=== PATIENT | male | born 1995 | race Caucasian/White ===

== ENCOUNTER 2016-06-10 06:54 | Observation (INO) | payer OTHER ==
[~2016-06-10] VITALS: Ht 175.3 cm; Wt 84.0 kg
[2016-06-10 06:59] VITALS: Ht 175.3 cm; Wt 84.0 kg
[2016-06-10] MEDS ORDERED: SERT50TA PO (07:13)
[2016-06-10] MEDS ORDERED: ONDANSETRON INJ 2 MG/ML 2 ML VIAL IV STA ×2 (07:14→09:18)
[2016-06-10] MEDS ORDERED: SODIUM CHLORIDE 0.9% 1000ML 1,000 ML IV STA ×3 (07:14→13:27)
--- NOTE | 2016-06-10 07:20 | EMERGENCY ROOM VISIT NOTE ---
History Report prepared by Thierno: Matt Patel Under the Supervision of: Dr. Iram Kingsley M.D. First contact with patient: 07:03 Chief Complaint: VOMITING Stated Complaint: VOMITING,WATERY STOOL,CHILLS,FEVER Nursing Triage Summary: Pt reports nausea, vomitting diarrhea since approx 0200 today. pt reports "i think i had a fever and i had chills." History of Present Illness The patient is a 21 year old male who presents to the Emergency Room with complaints of persistent vomiting that started 4.5 hours prior to arrival. The patient notes he woke up in the middle of the night with vomiting. He notes he had recurring episodes every 15 minutes. The patient has not been able to keep any food or liquids down. The patient also complains of nausea, diarrhea, fever , and chills. He notes multiple close contact illnesses around his house. 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 A total of 10 systems reviewed and were otherwise negative. Past Medical & Surgical Medical Problems: (1) No pertinent past medical history Family History No pertinent family history Social History Smoking Status: Never Smoker Housing Status: lives with roommate Occupation Status: [employer] student Current/Historical Medications Scheduled Ondasetron Odt (Zofran Odt), 4 MG SL Q6H Sertraline (Zoloft), 50 MG PO DAILY Allergies Coded Allergies: No Known Allergies (Unverified , 06/10/16) Physical Exam Vital Signs Date Time Temp Pulse Resp B/P Pulse Ox O2 Delivery O2 Flow Rate FiO2 06/10/16 13:40 106 20 118/67 97 Room Air 06/10/16 11:44 119 18 107/64 98 Room Air 06/10/16 09:46 112 18 113/77 97 Room Air 06/10/16 08:05 102 18 117/75 100 Room Air 06/10/16 06:59 36.4 102 16 118/79 96 Room Air Physical Exam CONSTITUTIONAL: Mild distress HEENT: No icterus, moist mucous membranes NECK: No meningismus, trachea is midline. CARDIOVASCULAR: Regular rate, normal perfusion RESPIRATORY: Unlabored breathing. Clear to auscultation. GASTROINTESTINAL: Non-tender. Benign abdomen. GENITOURINARY: No flank tenderness MUSCULOSKELETAL: Full range of motion NEUROLOGIC: No acute gross focal deficits. PSYCHIATRIC: Normal affect SKIN: Normal for ethnicity. Medical Decision & Procedures ER Provider Diagnostic Interpretation: US results as stated below per my review and radiologist interpretation. Right upper quadrant ultrasound GALLBLADDER-ABD LIMITED CLINICAL HISTORY: pancreatitis pain. Nausea. TECHNIQUE: Real-time ultrasound COMPARISON STUDY: None FINDINGS: Small gallbladder polyp. No shadowing gallstones. Color wall and biliary duct system are normal. There is uniform throughout. Pancreas and right kidney are unremarkable. IMPRESSION: Small gallbladder polyp. Otherwise negative study Electronically signed by: Omer Stover M.D. 06/10/2016 12:47 PM Dictated Date/Time: 06/10/2016 12:42 PM Laboratory Results 06/10/16 07:11 Red Blood Count 5.38, Mean Corpuscular Volume 87.4, Mean Corpuscular Hemoglobin 30.1, Mean Corpuscular Hemoglobin Concent 34.5, Mean Platelet Volume 9.8, Neutrophils (%) (Auto) 81.4, Lymphocytes (%) (Auto) 12.8, Monocytes (%) (Auto) 4.6, Eosinophils (%) (Auto) 1.0, Basophils (%) (Auto) 0.1, Neutrophils # (Auto) 5.72, Lymphocytes # (Auto) 0.90, Monocytes # (Auto) 0.32, Eosinophils # (Auto) 0.07, Basophils # (Auto) 0.01 06/10/16 07:11 Test 06/10/16 07:11 06/10/16 07:21 White Blood Count 7.03 K/uL (4.8-10.8) Red Blood Count 5.38 M/uL (4.7-6.1) Hemoglobin 16.2 g/dL (14.0-18.0) Hematocrit 47.0 % (42-52) Mean Corpuscular Volume 87.4 fL (80-100) Mean Corpuscular Hemoglobin 30.1 pg (25-34) Mean Corpuscular Hemoglobin Concent 34.5 g/dl (32-36) Platelet Count 185 K/uL (130-400) Mean Platelet Volume 9.8 fL (7.4-10.4) Neutrophils (%) (Auto) 81.4 % Lymphocytes (%) (Auto) 12.8 % Monocytes (%) (Auto) 4.6 % Eosinophils (%) (Auto) 1.0 % Basophils (%) (Auto) 0.1 % Neutrophils # (Auto) 5.72 K/uL (1.4-6.5) Lymphocytes # (Auto) 0.90 K/uL (1.2-3.4) Monocytes # (Auto) 0.32 K/uL (0.11-0.59) Eosinophils # (Auto) 0.07 K/uL (0-0.5) Basophils # (Auto) 0.01 K/uL (0-0.2) RDW Standard Deviation 44.5 fL (36.4-46.3) RDW Coefficient of Variation 13.9 % (11.5-14.5) Immature Granulocyte % (Auto) 0.1 % Immature Granulocyte # (Auto) 0.01 K/uL (0.00-0.02) Anion Gap 11.0 mmol/L (3-11) Est Creatinine Clear Calc Drug Dose 109.7 ml/min Estimated GFR () 110.6 Estimated GFR (Non- 95.5 BUN/Creatinine Ratio 16.2 (10-20) Calcium Level 9.3 mg/dl (8.5-10.1) Total Bilirubin 0.4 mg/dl (0.2-1) Direct Bilirubin < 0.1 mg/dl (0-0.2) Aspartate Amino Transf (AST/SGOT) 31 U/L (15-37) Alanine Aminotransferase (ALT/SGPT) 52 U/L (12-78) Alkaline Phosphatase 98 U/L (45-117) Total Protein 8.8 gm/dl (6.4-8.2) Albumin 4.6 gm/dl (3.4-5.0) Lipase 1040 U/L (73-393) Labs reviewed by ED physician. Medications Administered Medications (Trade) Dose Ordered Sig/Justo Route Start Time Stop Time Status Last Admin Dose Admin Sodium Chloride (Nss 1000ml) 1,000 ml @ 0 mls/hr Q0M STAT IV 06/10/16 07:14 06/10/16 07:18 DC 06/10/16 07:24 999 MLS/HR Ondansetron HCl (Zofran Inj) 4 mg NOW STAT IV 06/10/16 07:14 06/10/16 07:18 DC 06/10/16 07:31 4 MG Ondansetron HCl 4 mg 4 mg NOW STAT IV 06/10/16 09:18 06/10/16 09:19 DC 06/10/16 09:27 4 MG Promethazine HCl 25 mg/Sodium Chloride 51 ml @ 204 mls/hr NOW STAT IV 06/10/16 10:05 06/10/16 10:19 DC 06/10/16 10:13 204 MLS/HR Sodium Chloride 1,000 ml @ 0 mls/hr Q0M STAT IV 06/10/16 10:07 06/10/16 10:09 DC 06/10/16 10:37 999 MLS/HR Sodium Chloride (Nss 1000ml) 1,000 ml @ 0 mls/hr Q0M STAT IV 06/10/16 13:27 06/10/16 13:28 DC 06/10/16 14:02 0 MLS/HR ED Course 0702: Past medical records reviewed. The patient was evaluated in room A3. A complete history and physical examination was performed. 0714: Ordered Zofran Inj 4 mg IV, NSS 1000 ml @ 0 mls/hr Wide Open IV. 0918: Ordered Zofran Inj 4 mg IV. 0957: At this time, I reevaluated the patient and he had another episode of vomiting after trying to drink some Gatorade. 1005: Ordered Promethazine HCl 25 mg/ NSS 51 ml @ 204 mls/hr IV. 1007: Ordered NSS 1000 ml @ 0 mls/hr Wide Open IV. 1156: At this time, I reevaluated the patient and he still was not feeling better. 1327: Ordered NSS 1000 ml @ 0 mls/hr Wide Open IV. 1333:At this time, I discussed the patient's case with Dr. René PORTILLO and he agreed to accept the patient for further evaluation. Medical Decision Differential diagnoses include gastroenteritis, pancreatitis, or gallstones. 21-year-old presents to the emergency department for evaluation of vomiting. Lipase was 1000 consistent with pancreatitis. Ultrasound negative for gallstones. Patient notes infrequent significant use of alcohol. Patient required repeated doses of antiemetics but remained nauseous throughout emergency Department course. Admission arranged. Consults Time Called: 1328 Consulting Physician: Dr. René PORTILLO Returned Call: [phone] At this time, I discussed the patient's case with Dr. Merritt and he agreed to accept the patient for further evaluation. Impression Primary Impression: Pancreatitis Additional Impression: Intractable vomiting Scribe Attestation The scribe's documentation has been prepared under my direction and personally reviewed by me in its entirety. I confirm that the note above accurately reflects all work, treatment, procedures, and medical decision making performed by me. Departure Information Dispostion Being Evaluated By Hospitalist Prescriptions Ondasetron Odt (ZOFRAN ODT) 4 Mg Tab 4 MG SL Q6H for Nausea, #20 TAB Prov: Iram Kingsley MD 06/10/16 Referrals No Doctor, Assigned (PCP) Problem Qualifiers
[2016-06-10] MEDS ORDERED: ONDA4TAB10 SL (07:21)
[2016-06-10 07:27] LABS: BASO % 0.1 %; BASO ABS # 0.01 K/uL (0-0.2); COMPLETE YES; IG% 0.1 %; LYMPH % 12.8 %; MEAN CELL VOLUME 87.4 fL (80-100); MEAN CORPUSCULAR HEMOGLOBIN 30.1 pg (25-34); MEAN CORPUSCULAR HGB CONC 34.5 g/dl (32-36); MEAN PLATELET VOLUME 9.8 fL (7.4-10.4); MONO % 4.6 %; NEUT % 81.4 %; PLATELET COUNT 185 K/uL (130-400); RED BLOOD COUNT 5.38 M/uL (4.7-6.1); WHITE BLOOD COUNT 7.03 K/uL (4.8-10.8)
[2016-06-10 07:50] LABS: BUN/CREATININE RATIO 16.2 (10-20); CALCIUM 9.3 mg/dl (8.5-10.1); CREATININE 1.1 mg/dl (0.60-1.40); POTASSIUM 3.6 mmol/L (3.5-5.1)
[2016-06-10] MEDS ORDERED: PROMETHAZINE HCL INJ 25 MG in SODIUM CHLORIDE 0.9% 50ML 50 ML IV STA (10:05)
[2016-06-10 11:10] LABS: ALKALINE PHOSPHATASE 98 U/L (45-117); ALT/SGPT 52 U/L (12-78); AST/SGOT 31 U/L (15-37)
--- NOTE | 2016-06-10 12:49 | DIAGNOSTIC IMAGING REPORT ---
Right upper quadrant ultrasound GALLBLADDER-ABD LIMITED CLINICAL HISTORY: pancreatitis pain. Nausea. TECHNIQUE: Real-time ultrasound COMPARISON STUDY: None FINDINGS: Small gallbladder polyp. No shadowing gallstones. Color wall and biliary duct system are normal. There is uniform throughout. Pancreas and right kidney are unremarkable. IMPRESSION: Small gallbladder polyp. Otherwise negative study Electronically signed by: Omer Stover M.D. 06/10/2016 12:47 PM Dictated Date/Time: 06/10/2016 12:42 PM
--- NOTE | 2016-06-10 14:28 | History and Physical ---
History & Physical Date & Time of Service: Jun 10, 2016 at 14:23 Chief Complaint: Vomiting,Watery Stool,Chills,Fever Primary Care Physician: [facility] History of Present Illness Source: patient Fred Plaza is a 21 year old male with depression who presents with vomiting since 2am today. He had been drinking the three evenings prior, starting Friday night where he had about 7-8 drinks, Friday where he had -4 beers, and then Friday night where he had about 6 drinks total (3 beers, 2 shots, and 2 mixed drinks). He was sleeping and woke up vomiting. He vomited 20 times total, about every 15 minutes, initially his vomit was food then bile. Tried to eat saltine crackers then was vomiting more. This was associated with chills, fevers (did not measure ), and diarrhea about 5 times. He denies blood in his vomit or stool. He lives in a Frat house, others have similar symptoms with viral gastroenteritis. Denies any abdominal pain, has some vague back pain which he thinks is from vomiting/retching. Currently, denies nausea. It has been 1.5 hours since he last vomited. Past Medical/Surgical History PMHx: Depression PSHx: None Family History No pertinent family history Multiple family members with addiction and substance abuse in extended family Father has anxiety, hyperlipidemia, and had pancreatitis in the past from alcohol intake Mother healthy Social History Lives in a Frat house. Smoking Status: Current Some Day Smoker (Smokes a cigar once per month) Alcohol Use: Drinks twice week, usually 8 drinks + Drug Use: marijuana (Last used in Feb) Marital Status: other Housing status: lives with friends Occupational Status: [employer] student Allergies Coded Allergies: No Known Allergies (Unverified , 06/10/16) Home Medications Scheduled Ondasetron Odt (Zofran Odt), 4 MG SL Q6H Sertraline (Zoloft), 50 MG PO DAILY Review of Systems See HPI for pertinent positives & negatives. A total of 10 systems reviewed and were otherwise negative. Physical Exam Vital Signs Date Time Temp Pulse Resp B/P Pulse Ox O2 Delivery O2 Flow Rate FiO2 06/10/16 13:40 106 20 118/67 97 Room Air 06/10/16 11:44 119 18 107/64 98 Room Air 06/10/16 09:46 112 18 113/77 97 Room Air 06/10/16 08:05 102 18 117/75 100 Room Air 06/10/16 06:59 36.4 102 16 118/79 96 Room Air General Appearance: WD/WN, no apparent distress Head: normocephalic, atraumatic Eyes: normal inspection, PERRL ENT: hearing grossly normal Neck: supple, no JVD Respiratory/Chest: lungs clear, normal breath sounds, no respiratory distress Cardiovascular: regular rate, rhythm, no murmur Abdomen/GI: normal bowel sounds, non tender, soft Back: no CVA tenderness Extremities/Musculoskelatal: no calf tenderness, no pedal edema Neurologic/Psych: alert, normal mood/affect, normal reflexes, oriented x 3 Skin: no rash Diagnostics Laboratory Results Results Past 24 Hours Test 06/10/16 07:11 06/10/16 07:21 Range/Units White Blood Count 7.03 4.8-10.8 K/uL Red Blood Count 5.38 4.7-6.1 M/uL Hemoglobin 16.2 14.0-18.0 g/dL Hematocrit 47.0 42-52 % Mean Corpuscular Volume 87.4 80-100 fL Mean Corpuscular Hemoglobin 30.1 25-34 pg Mean Corpuscular Hemoglobin Concent 34.5 32-36 g/dl Platelet Count 185 130-400 K/uL Mean Platelet Volume 9.8 7.4-10.4 fL Neutrophils (%) (Auto) 81.4 % Lymphocytes (%) (Auto) 12.8 % Monocytes (%) (Auto) 4.6 % Eosinophils (%) (Auto) 1.0 % Basophils (%) (Auto) 0.1 % Neutrophils # (Auto) 5.72 1.4-6.5 K/uL Lymphocytes # (Auto) 0.90 1.2-3.4 K/uL Monocytes # (Auto) 0.32 0.11-0.59 K/uL Eosinophils # (Auto) 0.07 0-0.5 K/uL Basophils # (Auto) 0.01 0-0.2 K/uL RDW Standard Deviation 44.5 36.4-46.3 fL RDW Coefficient of Variation 13.9 11.5-14.5 % Immature Granulocyte % (Auto) 0.1 % Immature Granulocyte # (Auto) 0.01 0.00-0.02 K/uL Sodium Level 142 136-145 mmol/L Potassium Level 3.6 3.5-5.1 mmol/L Chloride Level 104 98-107 mmol/L Carbon Dioxide Level 27 21-32 mmol/L Anion Gap 11.0 3-11 mmol/L Blood Urea Nitrogen 18 7-18 mg/dl Creatinine 1.10 0.60-1.40 mg/dl Est Creatinine Clear Calc Drug Dose 109.7 ml/min Estimated GFR () 110.6 Estimated GFR (Non- 95.5 BUN/Creatinine Ratio 16.2 10-20 Random Glucose 129 70-99 mg/dl Calcium Level 9.3 8.5-10.1 mg/dl Total Bilirubin 0.4 0.2-1 mg/dl Direct Bilirubin < 0.1 0-0.2 mg/dl Aspartate Amino Transf (AST/SGOT) 31 15-37 U/L Alanine Aminotransferase (ALT/SGPT) 52 12-78 U/L Alkaline Phosphatase 98 45-117 U/L Total Protein 8.8 6.4-8.2 gm/dl Albumin 4.6 3.4-5.0 gm/dl Lipase 1040 73-393 U/L Diagnostic Radiology [~ rep ct add3]] Right upper quadrant ultrasound GALLBLADDER-ABD LIMITED CLINICAL HISTORY: pancreatitis pain. Nausea. TECHNIQUE: Real-time ultrasound COMPARISON STUDY: None FINDINGS: Small gallbladder polyp. No shadowing gallstones. Color wall and biliary duct system are normal. There is uniform throughout. Pancreas and right kidney are unremarkable. IMPRESSION: Small gallbladder polyp. Otherwise negative study Impression Assessment and Plan 21 yo M with significant alcohol consumption over weekend who presents with 12 hours of nausea/vomiting/diarrhea, with elevated lipase - differential includes pancreatitis (from alcohol, unlikely gallstones with negative US), gastroenteritis, peptic ulcer, cholecystitis. Plan: Intractable Nausea/vomiting - NPO with IV fluids - Zofran/Phenergan/Compazine all PRN Elevated lipase - ? sec to excessive alc use. Doubt pancreatitis - NS at 200mL/hour - Trend lipase / LFTs - Will check lipids tomorrow in case this is related Alcohol consumption - Discussed decreasing / limiting amounts he drinks - Monitor for signs of withdrawal VTE: SCDs CODE STATUS: FULL DISPO: Med/Surg Level of Care Med/Surg Resuscitation Status FULL RESUSCITATION Resident Tracking Resident Involvement: Resident Care Provided Care Provided: Adult Hospital Medicine Reviewed: Pt Seen/Exam by Me History 21 y/o M presented to ED with intractable N/V after having had significant alc drinks Constitutional: denies: fever Respiratory: negative: short of breath Cardiovascular: denies chest pain General Appearance: mild distress Respiratory: lungs clear, no respiratory distress Cardiovascular: regular rate, rhythm Gastrointestinal: normal bowel sounds, non tender, soft Neurologic/Psychiatric: alert, oriented x 3 Skin Characteristics: warm/dry Assessment/Plan I have reviewed the medical record and performed a history and physical examination of this patient today. I have discussed the case with Dr. Villatoro. The above note reflects my findings, conclusions, and recommendations.
[2016-06-10] MEDS ORDERED: PROCHLORPERAZINE INJ 5 MG in SYRINGE 4 ML IV PRN (14:45)
[2016-06-10] MEDS ORDERED: POLYETHYLENE (MIRALAX) 17 GM PACK PO PRN (14:45)
[2016-06-10] MEDS ORDERED: PROMETHAZINE HCL INJ 25 MG in SODIUM CHLORIDE 0.9% 50ML 50 ML IV PRN (14:45)
[2016-06-10] MEDS ORDERED: MoRPHine SULFATE 4 MG/ML 1 ML CARP\\VIAL IV PRN (14:45)
[2016-06-10] MEDS ORDERED: ACETAMINOPHEN 325 MG TAB PO PRN (14:45)
[2016-06-10] MEDS ORDERED: METOCLOPRAMIDE HCL INJ 5 MG/ML 2 ML VIAL IV PRN (14:45)
[2016-06-10] MEDS ORDERED: ALUMINUM/MAGNESIUM/SIMETH (MAALOX MAX) 30 ML UDC PO PRN (14:45)
[2016-06-10] MEDS ORDERED: ONDANSETRON INJ 2 MG/ML 2 ML VIAL IV PRN (14:45)
[2016-06-10] MEDS ORDERED: MAGNESIUM HYDROXIDE SUSP 30 ML UDC PO PRN (14:45)
[2016-06-10] MEDS ORDERED: IV FLUIDS COMPLETED PRN (15:45)
[2016-06-10 17:11] VITALS: BP 107/66; PULSE 103; TEMP 36.7; O2SAT 97; BMI 27.3
[2016-06-10 17:30] VITALS: O2SAT 97
[2016-06-10] MEDS: SODIUM CHLORIDE 0.9% 1000ML 1,000 ML IV SCH ×3 (17:44→23:31)
[2016-06-10 20:45] LABS: URINE APPEARANCE CLEAR (CLEAR); URINE BILIRUBIN NEG (NEG); URINE COLOR YELLOW; URINE NITRITE NEG (NEG); URINE PH 5.5 (4.5-7.5); UROBILINOGEN NEG (NEG)
[2016-06-10 20:46] LABS: MANUAL MICROSCOPIC REQUIRED? NO; REVIEW REQ? NO
[2016-06-10 21:26] LABS: BENZODIAZEPINE, URINE NEG (NEG); COCAINE,URINE NEG (NEG); PHENCYCLIDINE, URINE NEG (NEG)
[2016-06-10 23:11] VITALS: BP 93/50; PULSE 97; TEMP 37.2; O2SAT 96
[2016-06-11] MEDS: SODIUM CHLORIDE 0.9% 1000ML 1,000 ML IV SCH ×2 (04:28→09:23)
[2016-06-11 07:00] LABS: BASO % 0.2 %; BASO ABS # 0.01 K/uL (0-0.2); COMPLETE YES; EOS % 1.3 %; HEMATOCRIT 39.6 % (42-52); LYMPH % 21.1 %; LYMPH ABS # 1.01 K/uL (1.2-3.4); MEAN CELL VOLUME 88.4 fL (80-100); MEAN CORPUSCULAR HEMOGLOBIN 28.6 pg (25-34); MEAN CORPUSCULAR HGB CONC 32.3 g/dl (32-36); MONO % 13.8 %; NEUT % 63.6 %; PLATELET COUNT 146 K/uL (130-400); RED BLOOD COUNT 4.48 M/uL (4.7-6.1); WHITE BLOOD COUNT 4.78 K/uL (4.8-10.8)
[2016-06-11 07:20] VITALS: BP 106/62; PULSE 88; TEMP 37.2; O2SAT 97
[2016-06-11 07:29] LABS: ALB/GLOB RATIO 1.1 (0.9-2); BUN/CREATININE RATIO 14.7 (10-20); CALCIUM 7.8 mg/dl (8.5-10.1); CHOLESTEROL/HDL RATIO 2.2; CREATININE 0.98 mg/dl (0.60-1.40); POTASSIUM 3.1 mmol/L (3.5-5.1)
--- NOTE | 2016-06-11 08:19 | Discharge Instructions ---
Discharge Instructions Admission Reason for Admission: Acute Pancreatitis, Intractable Vomiting Discharge Discharge Diagnosis / Problem: Nausea/ Vomiting, Elevated Lipase level. Discharge Goals Goal(s): Improve disease control Activity Recommendations Activity Limitations: resume your previous activity . Instructions / Follow-Up Instructions / Follow-Up Follow up with S within 1 week. Make sure to get a lab test - including your kidney levels (especially POTASSIUM ) and LIPASE levels. We recommend that you decrease the amount of alcohol you consume, as this likely contributed to the elevated lipase levels. Current Hospital Diet Patient's current hospital diet: Discharge Diet Recommended Diet: Regular Diet Pending Studies Studies pending at discharge: no Laboratory Results Lipid Panel Test 06/11/16 06:14 Range/Units Triglycerides Level 104 0-150 mg/dl Cholesterol Level 99 0-200 mg/dl HDL Cholesterol 46 mg/dl Cholesterol/HDL Ratio 2.2 LDL Cholesterol, Calculated 32 mg/dl Medical Emergencies . Who to Call and When: Medical Emergencies: If at any time you feel your situation is an emergency, please call 911 immediately. . Non-Emergent Contact Non-Emergency issues call your: Primary Care Provider Call Non-Emergent contact if: you have a fever, your pain is unusual for you . . "Provider Documentation" section prepared by Wanda Villatoro. VTE Core Measure Inpt VTE Proph given/why not?: Treatment not indicated
[2016-06-11] MEDS ORDERED: POTASSIUM CHLORIDE 20 MEQ TABCR PO ONE (08:45)
[2016-06-11 11:34] VITALS: BP 106/62; PULSE 88; TEMP 37.2; O2SAT 97
--- NOTE | 2016-06-11 15:24 | Discharge Summary ---
Discharge Summary Admission Date: Jun 10, 2016 at 14:39 Discharge Date: Jun 11, 2016 Discharge Disposition: Home Principal Diagnosis: Intractable nausea / vomiting Immunizations: Have You Had Influenza Vaccine: Unknown (Wanda Villatoro MD) Medication Reconciliation Continued Medications: Ondasetron Odt (Zofran Odt) 4 Mg Tab 4 MG SL Q6H for Nausea, #20 TAB Sertraline (Zoloft) 50 Mg Tab 50 MG PO DAILY, TAB Discharge Exam Review of Systems: Constitutional: No chills, No fever, No sweats Eyes: No worsening of vision ENT: No hearing loss Respiratory: No cough, No dyspnea at rest, No dyspnea on exertion, No shortness of breath, No sputum, No wheezing Cardiovascular: No chest pain, No edema Abdomen: No diarrhea, No nausea, No pain, No vomiting Musculoskeletal: No joint pain Genitourinary - Male: No dysuria, No hematuria Neurologic: No memory loss, No paralysis, No weakness Psychiatric: No depression symptoms Endocrine: No fatigue Integumentary: No rash Physical Exam: General Appearance: WD/WN, no apparent distress Eyes: normal inspection, PERRL ENT: normal ENT inspection Neck: supple, no JVD Respiratory/Chest: lungs clear, normal breath sounds, no respiratory distress Cardiovascular: regular rate, rhythm, no murmur, normal peripheral pulses Abdomen / GI: normal bowel sounds, non tender, soft Extremities: no calf tenderness, no pedal edema Neurologic/Psychiatric: no motor/sensory deficits, alert, normal mood/affect , oriented x 3 Skin: no rash (Wanda Villatoro MD) Review of Systems: Constitutional: No fever Respiratory: No shortness of breath Cardiovascular: No chest pain Abdomen: No nausea, No pain, No vomiting Physical Exam: General Appearance: no apparent distress Respiratory/Chest: lungs clear, no respiratory distress Cardiovascular: regular rate, rhythm Abdomen / GI: normal bowel sounds, non tender, soft Neurologic/Psychiatric: alert, oriented x 3 Skin: warm/dry (Elizabeth Pinto M.D.) Hospital Course Fred Plaza is a 21 year old male with depression who presents with vomiting since 2am today. He had been drinking the three evenings prior, starting Friday night where he had about 7-8 drinks, Friday where he had -4 beers, and then Zia night where he had about 6 drinks total (3 beers, 2 shots, and 2 mixed drinks). He was sleeping and woke up vomiting. He vomited 20 times total, about every 15 minutes, initially his vomit was food then bile. Tried to eat saltine crackers then was vomiting more. This was associated with chills, fevers (did not measure), and diarrhea about 5 times. He denies blood in his vomit or stool. He lives in a Frat house, others have similar symptoms with viral gastroenteritis. Denies any abdominal pain, has some vague back pain which he thinks is from vomiting/retching. Currently, denies nausea. It has been 1.5 hours since he last vomited. Overall, Fred is a 21 yo M with significant alcohol consumption over weekend who presents with 12 hours of nausea/vomiting/diarrhea, with elevated lipase - differential includes pancreatitis (from alcohol, unlikely gallstones with negative US), gastroenteritis, peptic ulcer, cholecystitis. Plan: Nausea/vomiting - Was NPO with IV fluids overnight. By next day he had not had any further vomiting and tolerated a clear then regular diet. Elevated lipase (1020 on admission, 70 at discharge) - NS at 200mL/hour - Lipase normalized by next day - Lipids normal Alcohol consumption - Discussed decreasing / limiting amounts he drinks - Did not have any signs of withdrawal Hypokalemia - was 3.1 on 06/11, was normal on admission, was likely due to receiving IV fluids - Received 40mEQ potassium PO supplementation - Would recommend re-checking BMP as outpatient within 1 week VTE: SCDs CODE STATUS: FULL DISPO: Med/Surg overnight. Was discharged 06/11/16 in good condition. Total Time Spent: Greater than 30 minutes This includes examination of the patient, discharge planning, medication reconciliation, and communication with other providers. (Wanda Villatoro MD) I have reviewed the medical record and performed a history and physical examination of this patient today. I have discussed the case with Dr. Villatoro. The above note reflects my findings, conclusions, and recommendation. Tolerating oral intake Lipase normal will d/c home. Total Time Spent: Greater than 30 minutes (37) (Elizabeth Pinto M.D.) Discharge Instructions Please refer to the electronic Patient Visit Report (Discharge Instructions) for additional information. (Wanda Villatoro MD) Follow-Up Within [address] [facility]. (Wanda Villatoro MD) Additional Copies To [facility] Resident Tracking Resident Involvement: Resident Care Provided Care Provided: Adult Hospital Medicine (Wanda Villatoro MD)
== END 2016-06-11 12:07 | disposition home or self-care (01) ==
LOC: ENRESERVDT → ENRESERVTM → C.EDB 06:56 → C.MSW 14:39
PROVIDERS: ADMIT Family Medicine; ATTEND Family Medicine
DX: R11.2 Nausea with vomiting, unspecified (principal); R79.89 Other specified abnormal findings of blood chemistry; Z72.89 Other problems related to lifestyle; E87.6 Hypokalemia; F32.9 Major depressive disorder, single episode, unspecified; F17.290 Nicotine dependence, other tobacco product, uncomplicated